=== PATIENT | male | born 1940 | race Caucasian/White ===

== ENCOUNTER 2018-03-21 14:29 | Inpatient (IN) | payer MEDICARE, MEDICAID, OTHER ==
[~2018-03-21] VITALS: Ht 182.9 cm; Wt 70.6 kg
[2018-03-21] MEDS ORDERED: SODIUM CHLORIDE 0.9% 1,000 ML IV ONE (14:36)
[2018-03-21] MEDS ORDERED: ONDANSETRON 2MG/ML, 2ML ONE ×2 (14:54)
[2018-03-21] MEDS ORDERED: PLEASE ENTER ALLERGIES MC SCH (15:00)
[2018-03-21] MEDS ORDERED: ONDANSETRON 2MG/ML, 2ML IVPush ONE (15:00)
[2018-03-21] MEDS ORDERED: PLEASE ENTER HEIGHT AND WEIGHT MC SCH (15:00)
[2018-03-21 15:18] LABS: BASOPHILS % (AUTO) 0 % (0-1); EOSINOPHILS % (AUTO) 0 % (1-7); LYMPHOCYTES # (AUTO) 0.15 x10^3/uL (1-3.4); LYMPHOCYTES % (AUTO) 3 % (22-44); MD NO; MEAN CORPUSCULAR HEMOGLOBIN 32.6 pg (27.5-34.5); MEAN CORPUSCULAR HGB CONC 33.9 g/dL (33.2-36.2); MEAN CORPUSCULAR VOLUME 96.1 fL (81-97); MEAN PLATELET VOLUME 9.4 fL (7.4-10.4); MONOCYTES # (AUTO) 0.62 x10^3/uL (0.2-0.8); MONOCYTES % (AUTO) 11 % (2-9); NEUTROPHILS # (AUTO) 4.77 x10^3/uL (1.8-6.8); NEUTROPHILS % (AUTO) 86 % (42-75); PLATELET COUNT 207 x10^3/uL (130-400); RED BLOOD COUNT 4.27 x10^6/uL (4.38-5.82); RED CELL DISTRIBUTION WIDTH 14.9 % (9.4-14.8)
[2018-03-21 15:50] LABS: ALANINE AMINOTRANSFERASE 20 U/L (12-78); ALBUMIN 3.6 g/dL (3.4-5.0); ANION GAP 9 mmol/L (5-15); CALCIUM 8.2 mg/dL (8.5-10.1); CHLORIDE 109 mmol/L (98-107); CREATININE 1.43 mg/dL (0.7-1.3)
[2018-03-21 15:54] LABS: ALKALINE PHOSPHATASE 80 U/L (45-117); BILIRUBIN,TOTAL 0.7 mg/dL (0.2-1.0); TOTAL PROTEIN 7.3 g/dL (6.4-8.2)
[2018-03-21 15:56] LABS: TROPONIN I 0.324 ng/mL (0.000-0.045)
[2018-03-21] MEDS ORDERED: ASPIRIN 81 MG TABLET CHEW ONE (16:00)
[2018-03-21] MEDS ORDERED: ASPIRIN 81 MG TABLET CHEW PO ONE (16:00)
[2018-03-21] MEDS ORDERED: ACETAMINOPHEN 325 MG TABLET PO PRN (16:30)
[2018-03-21] MEDS ORDERED: ONDANSETRON 2MG/ML, 2ML IVPush PRN (16:30)
[2018-03-21] MEDS ORDERED: GABAPENTIN 300 MG CAPSULE PO PRN (16:30)
[2018-03-21] MEDS ORDERED: BISACODYL 10 MG SUPP PR PRN (16:30)
[2018-03-21] MEDS ORDERED: morphine SULFATE 10 MG/ML, 1ML IVPush PRN (16:30)
[2018-03-21] MEDS ORDERED: hydrALAzine 20 MG/ML, 1ML IVPush PRN (16:30)
[2018-03-21] MEDS ORDERED: AZITHROMYCIN 500 MG in SODIUM CHLORIDE 0.9% 250 ML IVPB ONE (16:30)
[2018-03-21] MEDS ORDERED: CEFTRIAXONE 1,000 MG in SODIUM CHLORIDE 0.9% 50 ML IVPB ONE (16:30)
[2018-03-21] MEDS ORDERED: LABETALOL 5MG/ML, 20ML IVPush PRN (16:30)
[2018-03-21] MEDS ORDERED: POLYETHYLENE GLYCOL 17 GM PACKET PO PRN (16:30)
[2018-03-21] MEDS ORDERED: DOCUSATE 100 MG CAPSULE PO PRN (16:30)
[2018-03-21] MEDS ORDERED: PROMETHAZINE 25 MG/ML, 1ML IM PRN (16:30)
[2018-03-21] MEDS ORDERED: SODIUM CHLORIDE FLUSH 10ML SYR IVF PRN (16:30)
[2018-03-21] MEDS ORDERED: ONDANSETRON ODT 4 MG PO PRN (16:30)
[2018-03-21 17:45] VITALS: BP 103/57
[2018-03-21] MEDS: SODIUM CHLORIDE 0.9% 1,000 ML IV SCH (17:58)
[2018-03-21] MEDS ORDERED: HEPARIN 25,000 UNITS/500ML PMX 500 ML IV PRN (18:00)
[2018-03-21] MEDS ORDERED: HEPARIN 5,000 UNITS/ML, 1ML IV ONE (18:00)
[2018-03-21] MEDS ORDERED: CEFTRIAXONE PMX 1GM/50ML 50 ML IV ONE (18:00)
[2018-03-21] MEDS: NICOTINE 7 MG/24 HR PATCH.TD24 TD SCH (18:44)
[2018-03-21] MEDS: DOXYCYCLINE 100MG TABLET PO SCH (20:36)
[2018-03-21 21:15] VITALS: BP 119/68
[2018-03-22] MEDS: HEPARIN 5,000 UNITS/ML, 1ML IV PRN ×3 (01:39→16:46)
[2018-03-22 01:50] VITALS: BP 99/63
[2018-03-22] MEDS: SODIUM CHLORIDE 0.9% 1,000 ML IV SCH (03:53)
[2018-03-22 05:02] LABS: TROPONIN I 0.405 ng/mL (0.000-0.045)
[2018-03-22 06:41] LABS: TROPONIN I 0.369 ng/mL (0.000-0.045)
[2018-03-22 08:00] VITALS: BP 109/66
[2018-03-22] MEDS: DOXYCYCLINE 100MG TABLET PO SCH ×2 (09:21→19:58)
[2018-03-22] MEDS ORDERED: FLUTICASONE/VILANTEROL 100-25MCG/INH INH SCH (12:00)
[2018-03-22] MEDS ORDERED: BUDESONIDE 0.5 MG/2 ML INHA NPPB SCH ×2 (12:00)
[2018-03-22] MEDS ORDERED: ALBUTEROL SULFATE 2.5 MG/3 ML NPPB SCH ×2 (12:00)
[2018-03-22 12:15] LABS: RAPID INFLUENZA B Negative (Negative)
[2018-03-22 12:19] LABS: RAPID INFLUENZA A POSITIVE (Negative)
[2018-03-22 12:24] VITALS: BP 106/64
[2018-03-22] MEDS ORDERED: vitamin B3 PO (12:34)
[2018-03-22] MEDS ORDERED: METO25TA35 PO (12:34)
[2018-03-22] MEDS ORDERED: NICO2GUM41 PO (12:34)
[2018-03-22] MEDS ORDERED: APIX5TAB PO (12:34)
[2018-03-22] MEDS: OSELTAMIVIR 75 MG CAPSULE PO SCH ×2 (13:20→19:57)
[2018-03-22] MEDS ORDERED: METOPROLOL TARTRATE 25 MG TABLET ONE (15:32)
[2018-03-22 15:34] VITALS: BP 120/83
[2018-03-22] MEDS: METOPROLOL TARTRATE 25 MG TABLET PO SCH (15:35)
[2018-03-22] MEDS ORDERED: DILTIAZEM 125 MG in SODIUM CHLORIDE 0.9% 100 ML IV PRN (16:30)
[2018-03-22] MEDS: NICOTINE 7 MG/24 HR PATCH.TD24 TD SCH (18:42)
[2018-03-22] MEDS: CEFTRIAXONE PMX 2GM/50ML 50 ML IV SCH (18:46)
[2018-03-22 19:47] VITALS: BP 101/71
[2018-03-22] MEDS: APIXABAN 5 MG TABLET PO SCH (19:57)
[2018-03-23 00:51] VITALS: BP 93/59
[2018-03-23] MEDS: METOPROLOL TARTRATE 25 MG TABLET PO SCH ×2 (05:15→18:16)
[2018-03-23 07:05] LABS: ANION GAP 8 mmol/L (5-15); CALCIUM 7.9 mg/dL (8.5-10.1); CHLORIDE 109 mmol/L (98-107)
[2018-03-23 08:21] VITALS: BP 108/77
[2018-03-23] MEDS: APIXABAN 5 MG TABLET PO SCH ×2 (08:31→20:21)
[2018-03-23] MEDS: DOXYCYCLINE 100MG TABLET PO SCH ×2 (08:31→20:21)
[2018-03-23] MEDS: OSELTAMIVIR 75 MG CAPSULE PO SCH ×2 (08:31→20:21)
[2018-03-23] MEDS ORDERED: MAGNESIUM SULFATE PMX 2GM/50ML 50 ML IV ONE (10:00)
[2018-03-23] MEDS ORDERED: POTASSIUM CHLORIDE 20 MEQ TAB.ER.PRT PO ONE (11:30)
[2018-03-23 13:57] VITALS: BP 100/63
[2018-03-23 14:57] VITALS: BP 95/60
[2018-03-23] MEDS: CEFTRIAXONE PMX 2GM/50ML 50 ML IV SCH (18:20)
[2018-03-23] MEDS: NICOTINE 7 MG/24 HR PATCH.TD24 TD SCH (18:21)
[2018-03-23 18:53] VITALS: BP 84/53
[2018-03-23 20:19] VITALS: BP 101/63
[2018-03-23] MEDS: MAGNESIUM CHLORIDE 64 MG TABLET.DR PO SCH (20:21)
[2018-03-24 00:34] VITALS: BP 100/67
[2018-03-24 01:43] VITALS: BP 131/77
[2018-03-24 05:32] LABS: ANION GAP 7 mmol/L (5-15); CALCIUM 7.9 mg/dL (8.5-10.1); CHLORIDE 109 mmol/L (98-107); CREATININE 1.16 mg/dL (0.7-1.3)
[2018-03-24] MEDS ORDERED: METOPROLOL TARTRATE 25 MG TABLET PO SCH (06:00)
[2018-03-24 06:10] VITALS: BP 101/60
[2018-03-24 08:15] VITALS: BP 116/71
[2018-03-24] MEDS: MAGNESIUM CHLORIDE 64 MG TABLET.DR PO SCH (08:19)
[2018-03-24] MEDS: DOXYCYCLINE 100MG TABLET PO SCH (08:20)
[2018-03-24] MEDS: OSELTAMIVIR 75 MG CAPSULE PO SCH (08:20)
[2018-03-24] MEDS ORDERED: POTASSIUM PHOSPHATE 22 MEQ in SODIUM CHLORIDE 0.9% 500 ML IV ONE (10:00)
[2018-03-24 10:28] LABS: MEAN CORPUSCULAR HEMOGLOBIN 33.3 pg (27.5-34.5); MEAN CORPUSCULAR HGB CONC 34.3 g/dL (33.2-36.2); MEAN CORPUSCULAR VOLUME 96.8 fL (81-97); MEAN PLATELET VOLUME 10.4 fL (7.4-10.4); PLATELET COUNT 173 x10^3/uL (130-400); RED BLOOD COUNT 4.11 x10^6/uL (4.38-5.82); RED CELL DISTRIBUTION WIDTH 14.8 % (9.4-14.8)
[2018-03-24] MEDS ORDERED: SODIUM CHLORIDE 0.9%, 500ML IVBOLUS ONE (10:30)
[2018-03-24 10:37] LABS: BASOPHILS # (AUTO) 0.01 x10^3/uL (0-0.1); BASOPHILS % (AUTO) 0 % (0-1); EOSINOPHILS # (AUTO) 0.01 x10^3/uL (0-0.4); EOSINOPHILS % (AUTO) 0 % (1-7); LYMPHOCYTES # (AUTO) 0.86 x10^3/uL (1-3.4); LYMPHOCYTES % (AUTO) 23 % (22-44); MD NO; MONOCYTES # (AUTO) 0.43 x10^3/uL (0.2-0.8); MONOCYTES % (AUTO) 11 % (2-9); NEUTROPHILS # (AUTO) 2.49 x10^3/uL (1.8-6.8); NEUTROPHILS % (AUTO) 66 % (42-75)
[2018-03-24] MEDS: APIXABAN 5 MG TABLET PO SCH (10:54)
[2018-03-24] MEDS ORDERED: Magnesium Chloride PO (11:26)
[2018-03-24] MEDS ORDERED: OSEL75CA PO (11:26)
[2018-03-24] MEDS ORDERED: DOXY100T PO (11:26)
[2018-03-24] MEDS ORDERED: CEFD300C37 PO (11:26)
[2018-03-24 14:24] VITALS: BP 127/78
== END 2018-03-24 16:08 | DRG 193 ==
LOC: ED 16:20 → EDIP 16:21 → ED 16:52 → 5SO 17:37
PROVIDERS: ADMIT Family Medicine; ATTEND Family Medicine
DX: J10.08 Influenza due to other identified influenza virus with other specified pneumonia (principal); N17.0 Acute kidney failure with tubular necrosis; J96.01 Acute respiratory failure with hypoxia; R53.2 Functional quadriplegia; D68.69 Other thrombophilia; E44.0 Moderate protein-calorie malnutrition; J15.9 Unspecified bacterial pneumonia; J44.0 Chronic obstructive pulmonary disease with (acute) lower respiratory infection; E87.6 Hypokalemia; F17.210 Nicotine dependence, cigarettes, uncomplicated; I07.1 Rheumatic tricuspid insufficiency; I48.2 Chronic atrial fibrillation; Z79.01 Long term (current) use of anticoagulants; Z68.21 Body mass index [BMI] 21.0-21.9, adult
CPT/HCPCS: 36415; 71045; 80048; 80053; 83605; 83735; 83880; 84100; 84484; 85025; 85520; 87040; 87400; 93005; 93306; 96374; 99285; G0378; J0696; J1644; J2405; J3475; J7030; J7040